=== PATIENT | male | born 1985 | race Caucasian/White ===

== ENCOUNTER → 2016-12-29 | Outpatient (CLI) | payer OTHER ==
[~2016-12-29] MED LIST: KEFL500C17 PO; NORCOTAB PO; POTA540T PO; RANI150T PO
--- NOTE | 2016-12-29 15:10 | REP ---
KUB: Single view. HISTORY: Kidney stones. FINDINGS: Supine view of the abdomen demonstrates a normal bowel gas pattern. There is a calcification over the right pubic bone which may be a prostate calcification. No other urinary tract calculus is seen. No bony abnormality is seen. IMPRESSION: No renal or bladder calculi seen. Signed by Get Mars MD 12/29/2016 03:27 P
== END ==
LOC: M SMT 13:42
PROVIDERS: ATTEND Nurse Practitioner Women's Health
DX: Z87.442 Personal history of urinary calculi (principal)
CPT/HCPCS: 74000; 81001; 87086; G0463

== ENCOUNTER 2017-02-05 10:37 | Emergency (ER) | payer OTHER ==
[~2017-02-05] VITALS: Ht 188 cm; Wt 84.1 kg
[2017-02-05] MEDS ORDERED: POTA540T PO (10:47)
[2017-02-05] MEDS ORDERED: RANI150T PO (10:47)
[2017-02-05] MEDS ORDERED: KETOROLAC 60 MG/2 ML VIAL (J1885) IM ONE (11:15)
[2017-02-05] MEDS ORDERED: NORCOTAB PO (11:53)
[2017-02-05] MEDS ORDERED: KEFL500C17 PO (11:53)
--- NOTE | 2017-02-05 11:59 | REP ---
LEFT FOOT, FOUR VIEWS: HISTORY: Injury. There are comminuted fractures of the distal phalanges of the fourth and fifth digits. There is a nondisplaced fracture of the distal phalange of the third digit. There is a nondisplaced fracture of the head of the proximal phalange of the fourth digit. There is no dislocation. The joint spaces are normal in appearance. IMPRESSION: 1. There are fracture of the distal phalanges of the third through fifth digits. 2. Nondisplaced fracture of the head of the proximal phalange of the fourth digit. Signed by Reed Gonzalez MD 02/05/2017 12:00 P
[2017-02-05 12:31] VITALS: BP 129/96
== END 2017-02-05 12:41 | disposition home or self-care (01) ==
LOC: M ED 10:37
DX: S92.535A Nondisplaced fracture of distal phalanx of left lesser toe(s), initial encounter for closed fracture (principal); S92.515A Nondisplaced fracture of proximal phalanx of left lesser toe(s), initial encounter for closed fracture; W20.8XXA Other cause of strike by thrown, projected or falling object, initial encounter; Y92.89 Other specified places as the place of occurrence of the external cause; Y93.89 Activity, other specified; Y99.8 Other external cause status; F17.210 Nicotine dependence, cigarettes, uncomplicated
CPT/HCPCS: 11740; 73630; 96372; 99283; J1885

== ENCOUNTER → 2017-04-29 | Outpatient (CLI) | payer OTHER ==
--- NOTE | 2017-04-29 10:02 | REP ---
Soft-tissue neck x-ray without contrast: History: Benign neoplasm of the larynx. No comparison imaging. Findings: Digital lateral licensed massage therapist radiograph is unremarkable. Parotid and submandibular glands are normal and symmetric. Thyroid lobes are unremarkable. There is no evidence of suprahyoid or infrahyoid adenopathy or mass lesion. There are small subcentimeter mucous retention cysts in the maxillary sinuses bilaterally. There are a few thickened ethmoid sinus septations consistent with mucosal thickening. Sphenoid and frontal sinuses are clear. Mastoid aeration is unremarkable. No bony destructive lesion is seen. Bony nasal septum deviates to the left with a leftward beak. Impression: No neck mass or adenopathy seen. No glottic or subglottic airway lesion is appreciated. Normal epiglottis. Signed by Get Mars MD 04/29/2017 01:35 P
== END ==
LOC: M RAD 08:59
PROVIDERS: ATTEND Dentist Orthodontics and Dentofacial Orthopedics
DX: D14.1 Benign neoplasm of larynx (principal)